=== PATIENT | female | born 1960 | race African-American/Black ===

== ENCOUNTER 2025-06-04 06:15 | Day surgery (SDC) | payer MEDICARE, BC, SELFPAY ==
[2025-06-04 07:49] LABS: Glucose - Point of Care 85 mg/dl (70-99)
== END 2025-06-04 09:00 | disposition home or self-care (01) ==
LOC: GI 06:15
PROVIDERS: ATTENDING PHYSICIAN Internal Medicine Gastroenterology
DX: R19.4 Change in bowel habit (principal); K64.8 Other hemorrhoids
CPT/HCPCS: 45378; 82962